=== PATIENT | male | born 1995 | race American Indian/Alaskan Native ===

== ENCOUNTER 2019-07-20 03:23 | Emergency (ER) | payer SELFPAY ==
[2019-07-20] MEDS ORDERED: SODIUM CHLORIDE 0.9% 1000 ML 1,000 ML IV ONE ×2 (03:36→03:38)
[2019-07-20] MEDS ORDERED: LIP THERAPY VASELINE TP PRN (03:36)
[2019-07-20] MEDS ORDERED: MINERAL OIL/PETROLATUM, WHITE OPHTH OINT 3.5 GM OU PRN (03:36)
[2019-07-20] MEDS ORDERED: TETANUS,DIPH,PERTUSS(ACELL) VACCINE 0.5 ML SYRINGE IM ONE ×2 (03:37→08:00)
[2019-07-20] MEDS ORDERED: TETANUS,DIPHTHERIA TOXOID ADULT 0.5 ML INJ IM ONE (03:38)
[2019-07-20] MEDS: TETANUS,DIPH,PERTUSS(ACELL) VACCINE 0.5 ML SYRINGE IM ONE (03:39)
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
[2019-07-20 03:47] LABS: Basophils # (Auto) 0.1 K/mm3 (0.0-0.1); Basophils % (Auto) 0.4 % (0.0-1.8); Eosinophils % (Auto) 0.1 % (0.0-4.3); Hematocrit 39.5 % (35.5-45.6); Hemoglobin 13.5 gm/dl (11.8-15.2); Lymphocytes # (Auto) 3.8 K/mm3 (1.2-5.4); Lymphocytes % (Auto) 19.5 % (13.4-35.0); Mean Corpuscular HGB Conc 34 % (32-34); Mean Corpuscular Volume 89 fl (84-94); Monocytes # (Auto) 1.2 K/mm3 (0.0-0.8); Monocytes % (Auto) 6.2 % (0.0-7.3); Platelet Count 337 K/mm3 (140-440); Red Blood Count 4.46 M/mm3 (3.65-5.03); Red Cell Distribution Width 13.2 % (13.2-15.2)
[2019-07-20] MEDS ORDERED: SODIUM CHLORIDE 0.9% 500 ML 500 ML ONE ×2 (03:52→03:55)
[2019-07-20 03:54] LABS: INR 1.31 (0.87-1.13)
[2019-07-20 03:55] LABS: Partial Thromboplastin Time 37.1 Sec. (24.2-36.6)
[2019-07-20] MEDS ORDERED: ROCURONIUM 50 MG/5 ML INJ IV ONE (03:55)
[2019-07-20] MEDS ORDERED: ETOMIDATE 20 MG/10 ML INJ IV ONE (03:55)
[2019-07-20] MEDS ORDERED: LIDOCAINE PF 100 MG/5 ML (CARDIAC SYRINGE) IV ONE (03:55)
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
[2019-07-20 03:58] LABS: Alanine Aminotransferase 214 units/L (7-56); Albumin 4.2 g/dL (3.9-5); BUN/Creatinine Ratio 19; Blood Urea Nitrogen 19 mg/dL (9-20); Calcium 8.7 mg/dL (8.4-10.2); Hemolysis Index 44
[2019-07-20 04:28] VITALS: BP 136/78
== END 2019-07-20 04:15 | disposition short-term general hospital (02) ==
LOC: ED 03:23
DX: S09.90XA Unspecified injury of head, initial encounter (principal); J96.00 Acute respiratory failure, unspecified whether with hypoxia or hypercapnia; V89.2XXA Person injured in unspecified motor-vehicle accident, traffic, initial encounter; Y93.89 Activity, other specified; Y92.410 Unspecified street and highway as the place of occurrence of the external cause; Y99.8 Other external cause status
CPT/HCPCS: 31500; 36415; 36430; 71045; 72170; 80053; 82550; 85025; 85610; 85730; 86850; 86900; 86901; 86920; 90471; 90715; 93005; 93010; 94002; 96365; 99291; J0690; J7040; P9016; 80320; 90714; G0480